=== PATIENT | female | born 1945 | race Caucasian/White ===

== ENCOUNTER → 2016-12-04 | Outpatient (CLI) | payer OTHER ==
[~2016-12-04] MED LIST: ADVAIR 250/501 EA INH; ASPI-COR81 M1 PO; CLINDAMYCIN HC300 MG PO; CLONIDINE0.1 MG PO; CLONIDINE0.1 MG/21 PO; COZAAR100 MG PO; HUMALOG MIX75/253 M1 SC; METFORMIN HCL1000 MG PO; NORVASC10 MG PO; PERCOCET 325 MG1 TA2 PO; PRAVACHOL40 MG PO; PREDNISONE50 MG PO; ULTRAM50 MG PO
== END | disposition home or self-care (01) ==
LOC: CARD 02:24
DX: R94.31 Abnormal electrocardiogram [ECG] [EKG] (principal)

== ENCOUNTER → 2017-12-08 | Outpatient (CLI) | payer OTHER | END | disposition home or self-care (01) | LOC: RAD 12:46 | DX: J45.909 Unspecified asthma, uncomplicated (principal); I10 Essential (primary) hypertension; E11.9 Type 2 diabetes mellitus without complications ==

== ENCOUNTER → 2018-03-16 | Outpatient (CLI) | payer OTHER | LOC: RAD 12:20 | DX: M47.896 Other spondylosis, lumbar region (principal) ==

== ENCOUNTER 2019-07-22 08:39 | Emergency (ER) | payer OTHER ==
[~2019-07-22] VITALS: Ht 170.1 cm; Wt 95.3 kg
[2019-07-22 08:41] VITALS: BP 152/53
[2019-07-22 09:29] LABS: BILIRUBIN NEGATIVE (NEGATIVE); BLOOD NEGATIVE (NEGATIVE); CLARITY CLEAR (CLEAR); COLOR YELLOW (YELLOW); GLUCOSE NEGATIVE (NEGATIVE); KETONE NEGATIVE (NEGATIVE); NITRITE NEGATIVE (NEGATIVE); SPECIFIC GRAVITY 1.015 (1.005-1.030); UROBILINOGEN 0.2 E.U./dl (0.2-1.0)
[2019-07-22 09:39] LABS: BACTERIA 2+; LEUKO ESTERASE NEGATIVE (NEGATIVE)
[2019-07-22 09:40] LABS: WBC 0-2 wbc/hpf (0-5)
[2019-07-22 10:34] LABS: BASO # 0.1 10*3/uL (0.0-0.1); BASO % 0.6 % (0.0-1.0); EOS # 0.4 10*3/uL (0.0-0.4); EOS % 4.7 % (1.0-4.0); HEMATOCRIT 35.9 % (37.0-47.0); LYMPH # 1.5 10*3/uL (1.3-4.4); MEAN CELL VOLUME 78.4 fl (81.0-99.0); MEAN CORPUSCULAR HGB CONC 30.6 g/dl (33.0-37.0); MEAN PLATELET VOLUME 9.3 fl (9.6-12.3); MONO # 0.4 10*3/uL (0.1-1.0); MONO % 4.8 % (3.0-9.0); NEUT # 5.8 10*3/uL (2.3-7.9); NEUT % 71.5 % (47.0-73.0); PLATELET COUNT AUTOMATED 341 10*3/uL (130-400); RED BLOOD COUNT 4.58 10*6/uL (4.10-5.10); RED CELL DISTRI WIDTH 16.5 % (0-14.5); WHITE BLOOD COUNT 8.1 10*3/uL (4.8-10.8)
[2019-07-22 10:58] LABS: BUN 26 mg/dl (7-24); CHLORIDE 106 mmol/L (98-107); CREATININE 1.07 mg/dL (0.55-1.02); POTASSIUM 4.4 mmol/L (3.5-5.1); SODIUM 142 mmol/L (136-145)
== END 2019-07-22 11:45 | disposition home or self-care (01) ==
LOC: ED 08:39
PROVIDERS: Emergency Medicine
DX: M54.5 Low back pain (principal); E11.9 Type 2 diabetes mellitus without complications; I10 Essential (primary) hypertension; J45.909 Unspecified asthma, uncomplicated; Z79.899 Other long term (current) drug therapy; Z90.710 Acquired absence of both cervix and uterus; Z90.49 Acquired absence of other specified parts of digestive tract

== ENCOUNTER 2019-09-04 09:10 | Inpatient (IN) | payer OTHER ==
[~2019-09-04] VITALS: Ht 170 cm; Wt 96.0 kg
[2019-09-04 09:13] VITALS: BP 170/76
[2019-09-04 09:34] VITALS: BP 142/58
--- NOTE | 2019-09-04 09:34 | NUR ---
PATIENT IS RECEIVING BREATHING TX AT THIS TIME.
[2019-09-04 09:47] LABS: BASO % 0.5 % (0.0-1.0); EOS # 0.3 10*3/uL (0.0-0.4); HEMATOCRIT 35.8 % (37.0-47.0); HEMOGLOBIN 11.2 g/dl (12.0-16.0); LYMPH # 1.2 10*3/uL (1.3-4.4); LYMPH % 18.6 % (27.0-41.0); MEAN CELL VOLUME 77.7 fl (81.0-99.0); MEAN CORPUSCULAR HGB 24.3 pg (27.0-31.0); MEAN CORPUSCULAR HGB CONC 31.3 g/dl (33.0-37.0); MEAN PLATELET VOLUME 9.1 fl (9.6-12.3); MONO # 0.4 10*3/uL (0.1-1.0); MONO % 6.4 % (3.0-9.0); NEUT # 4.4 10*3/uL (2.3-7.9); NEUT % 70.2 % (47.0-73.0); PLATELET COUNT AUTOMATED 328 10*3/uL (130-400); RED BLOOD COUNT 4.61 10*6/uL (4.10-5.10); RED CELL DISTRI WIDTH 16.8 % (0-14.5); WHITE BLOOD COUNT 6.3 10*3/uL (4.8-10.8)
[2019-09-04 10:00] LABS: ACT PARTIAL THROMBO TIME 24.2 SECONDS (20.0-32.1)
[2019-09-04 10:03] LABS: ALBUMIN 3.6 gm/dl (3.1-4.5); ALKALINE PHOSPHATASE 75 U/L (45-117); BUN 14 mg/dl (7-24); CHLORIDE 103 mmol/L (98-107); POTASSIUM 3.8 mmol/L (3.5-5.1); SGOT/AST 13 IU/L (3-35); SGPT/ALT 21 U/L (12-78); SODIUM 138 mmol/L (136-145); TOTAL PROTEIN 7.2 gm/dL (6.4-8.2)
--- NOTE | 2019-09-04 10:03 | NUR ---
PATIENT IS NOW ON ROOM AIR.
[2019-09-04 10:09] LABS: TROPONIN I < 0.015 ng/ml (<0.045)
--- NOTE | 2019-09-04 10:16 | NUR ---
WHILE ON ROOM AIR PATIENT WAS RESTING IN BED. SPO2 DROPPED TO 82-84% WITH GOOD WAVEFORM. PATIENT PLACED BACK ON 2 LITERS AND AFTER BEING ARROUSED AND TAKING DEEP BREATHS SPO2 IMPROVED TO 98%
[2019-09-04 11:15] VITALS: BP 126/50
[2019-09-04 12:20] VITALS: BP 99/51
--- NOTE | 2019-09-04 12:29 | NUR ---
A 73, admitted to , under the services of MIKE Chu MD with a diagnosis of HYPOXIA/COPD. Chief complaint is CHEST HEAVINESS, WHEEZING AND NONPRODUCTIVE COUGH. Patient arrived via stretcher from ER. Monitor applied. Initial assessment completed. Vital signs taken and recorded. MIKE CHU MD notified of admission to the unit. Orders received. See assessment for past medical history, medications and allergies. Patient and/or family oriented to unit. [facility] visitation policy reviewed. Clothing/patient valuable form completed. LALITHA CHAVEZ
[2019-09-04] MEDS ORDERED: PRAVASTATIN SOD20 MG PO (12:47)
[2019-09-04] MEDS ORDERED: VALSARTAN160 MG PO (12:47)
[2019-09-04] MEDS ORDERED: CLONIDINE0.2 MG PO (12:47)
[2019-09-04] MEDS ORDERED: MOBIC7.5 MG PO (12:48)
[2019-09-04] MEDS ORDERED: AMLODIPINE BESY10 MG PO (12:48)
[2019-09-04] MEDS ORDERED: NEURONTIN300 MG PO (12:48)
[2019-09-04] MEDS ORDERED: HYDR25T PO (12:49)
[2019-09-04] MEDS ORDERED: ASPIRIN81 M1 PO (12:49)
[2019-09-04] MEDS ORDERED: HUMALOG 751 UNIT/0.0 SC (12:50)
[2019-09-04 16:00] VITALS: BP 158/56
--- NOTE | 2019-09-04 18:10 | NUR ---
PATIENT RECEIVED BAD NEWS ON PHONE, SHE IS TEARFUL AND ANXIOUS, HR UP TO 140'S. PLACED ORDER FOR RUNNING TRAY FOR SUPPER FOR HER.
[2019-09-04 20:00] VITALS: BP 157/65
[2019-09-05] VITALS: BP 152/66
--- NOTE | 2019-09-05 02:27 | NUR ---
24 HOUR CHART CHECK COMPLETE
[2019-09-05 07:30] LABS: ALBUMIN 3.3 gm/dl (3.1-4.5); CREATININE 1.32 mg/dL (0.55-1.02); TOTAL PROTEIN 7.1 gm/dL (6.4-8.2)
[2019-09-05 08:00] VITALS: BP 132/58
[2019-09-05 08:22] LABS: BASO % 0.2 % (0.0-1.0); HEMATOCRIT 33.5 % (37.0-47.0); HEMOGLOBIN 10.3 g/dl (12.0-16.0); LYMPH # 0.6 10*3/uL (1.3-4.4); LYMPH % 10.2 % (27.0-41.0); MEAN CELL VOLUME 77.4 fl (81.0-99.0); MEAN CORPUSCULAR HGB 23.8 pg (27.0-31.0); MEAN CORPUSCULAR HGB CONC 30.7 g/dl (33.0-37.0); MEAN PLATELET VOLUME 9.8 fl (9.6-12.3); MONO # 0.1 10*3/uL (0.1-1.0); MONO % 1.8 % (3.0-9.0); NEUT # 5.5 10*3/uL (2.3-7.9); NEUT % 87.2 % (47.0-73.0); PLATELET COUNT AUTOMATED 327 10*3/uL (130-400); RED BLOOD COUNT 4.33 10*6/uL (4.10-5.10); RED CELL DISTRI WIDTH 16.8 % (0-14.5); WHITE BLOOD COUNT 6.3 10*3/uL (4.8-10.8)
--- NOTE | 2019-09-05 11:59 | NUR ---
PATIENT ACROSS ZHU TO [facility] TO VISIT HER BY WHEELCHAIR/O2 3L NC IN USE.
[2019-09-05 12:00] VITALS: BP 121/50
--- NOTE | 2019-09-05 12:16 | NUR ---
Auxiliary Power Equipment Operator in to talk to patient. Patient states lives at HOME with . There are 0 steps in the home. Physician: ESTEFANIA [facility]acy: [facility] Home health services: NONE Patient's level of ADLs: BEDFAST Patient has working utilities: YES DME: NONE Follow-up physician's appointment after d/c: PREFERS TO BE MADE BY HERSELF Does patient want to access PORTAL?: NO Discharge plan WAS DISCUSSED WITH THE PATIENT. PATIENT IS INDEPENDENT WITH ADLS/IADLS. PATIENT DRIVES. PATIENT DOES WORK. PATIENT STATED SHE HS NO NEEDS AT THIS TIME. HOWEVER, THE PATIENT IS CURRENTLY ON 3L OF OXYGEN. PATIENTS IS CURRENTLY IN THIS FACILITY WELL. PATIENT HAS NO HX OF HHC OR SNF. PATIENT PLANS ON RETURNING HOME AT DISCHARGE. CASE MANAGEMENT TO FOLLOW. NERY ANTONY
[2019-09-05 16:00] VITALS: BP 105/47
--- NOTE | 2019-09-05 19:30 | NUR ---
24 HOUR CHART CHECK COMPLETE
[2019-09-05 20:00] VITALS: BP 111/45
--- NOTE | 2019-09-05 20:10 | NUR ---
PATIENT ASSESSMENT COMPLETED WITHOUT INCIDENT AT THIS TIME. NC OXYGEN IN USE AT THIS TIME. PATIENT DENIES ANY NEED AT THIS TIME. CALL LIGHT WITHIN REACH WILL CONTINUE TO MONITOR.
[2019-09-06] VITALS: BP 113/56
[2019-09-06 08:00] VITALS: BP 110/46
[2019-09-06 09:14] LABS: HEMATOCRIT 31.7 % (37.0-47.0); HEMOGLOBIN 9.8 g/dl (12.0-16.0); MEAN CELL VOLUME 76.8 fl (81.0-99.0); MEAN CORPUSCULAR HGB 23.7 pg (27.0-31.0); MEAN CORPUSCULAR HGB CONC 30.9 g/dl (33.0-37.0); MEAN PLATELET VOLUME 9.7 fl (9.6-12.3); PLATELET COUNT AUTOMATED 342 10*3/uL (130-400); RED BLOOD COUNT 4.13 10*6/uL (4.10-5.10); RED CELL DISTRI WIDTH 17.2 % (0-14.5); WHITE BLOOD COUNT 15.7 10*3/uL (4.8-10.8)
[2019-09-06 09:34] LABS: ALBUMIN 3.3 gm/dl (3.1-4.5); CREATININE 1.78 mg/dL (0.55-1.02); TOTAL PROTEIN 6.7 gm/dL (6.4-8.2)
[2019-09-06 09:38] LABS: OVALOCYTES FEW; PLATELET SUFFICIENCY NORMAL (NORMAL); TOTAL CELLS COUNTED 100 #CELLS
[2019-09-06 09:39] LABS: TARGET CELLS FEW
[2019-09-06 12:00] VITALS: BP 96/42
[2019-09-06 12:43] VITALS: BP 100/50
--- NOTE | 2019-09-06 13:00 | NUR ---
Supervisor Special Education in to see patient. No new needs or request at this time. Discussed home health care services and she denies any home needs. Her is in [facility] 8. BC pending. IV antibiotics and IV steroids. When medically stable she will be discharged to home. She states she will drive herself home as her car is here at the hospital because she drove herself here.
[2019-09-06 16:00] VITALS: BP 100/40
[2019-09-06 20:00] VITALS: BP 111/48
[2019-09-06 21:00] LABS: BILIRUBIN NEGATIVE (NEGATIVE); BLOOD NEGATIVE (NEGATIVE); CLARITY SL CLOUDY (CLEAR); COLOR YELLOW (YELLOW); GLUCOSE NEGATIVE (NEGATIVE); KETONE NEGATIVE (NEGATIVE); LEUKO ESTERASE NEGATIVE (NEGATIVE); NITRITE NEGATIVE (NEGATIVE); PH 5.5 (5.0-9.0); SPECIFIC GRAVITY 1.025 (1.005-1.030); UROBILINOGEN 0.2 E.U./dl (0.2-1.0)
[2019-09-06 21:14] LABS: BACTERIA 1+
[2019-09-07] VITALS: BP 110/54
--- NOTE | 2019-09-07 00:44 | NUR ---
24 HR chart check completed.
[2019-09-07 07:35] LABS: HEMATOCRIT 31.1 % (37.0-47.0); HEMOGLOBIN 9.6 g/dl (12.0-16.0); MEAN CELL VOLUME 77.9 fl (81.0-99.0); MEAN CORPUSCULAR HGB 24.1 pg (27.0-31.0); MEAN CORPUSCULAR HGB CONC 30.9 g/dl (33.0-37.0); MEAN PLATELET VOLUME 10.2 fl (9.6-12.3); PLATELET COUNT AUTOMATED 333 10*3/uL (130-400); RED BLOOD COUNT 3.99 10*6/uL (4.10-5.10); RED CELL DISTRI WIDTH 17.6 % (0-14.5); WHITE BLOOD COUNT 15.1 10*3/uL (4.8-10.8)
[2019-09-07 07:53] LABS: ALBUMIN 3.1 gm/dl (3.1-4.5); CREATININE 1.98 mg/dL (0.55-1.02); PHOSPHOROUS 3.7 mg/dL (2.5-4.9); POTASSIUM 4.3 mmol/L (3.5-5.1)
[2019-09-07 08:00] VITALS: BP 112/48; BP 120/56
[2019-09-07 09:00] LABS: MICROCYTOSIS SLIGHT; OVALOCYTES FEW; PLATELET SUFFICIENCY NORMAL (NORMAL); POLYCHROMASIA SLIGHT; TARGET CELLS FEW; TOTAL CELLS COUNTED 100 #CELLS
--- NOTE | 2019-09-07 10:30 | NUR ---
Statistician Applied in to see patient. No new needs or request at this time. Discussed home health care services and she denies any home needs. When medically stable she will be discharged to home. Hypotension, cardiac medications changed.
[2019-09-07 12:00] VITALS: BP 115/59
[2019-09-07 16:00] VITALS: BP 127/47
[2019-09-07 20:00] VITALS: BP 133/43
[2019-09-08] VITALS: BP 116/43
--- NOTE | 2019-09-08 00:34 | NUR ---
24 HR chart check completed.
--- NOTE | 2019-09-08 06:20 | NUR ---
BEDSIDE GLUCOSE DONE 325 TEST REPEATED AND [address] LAY AND NOTIFIED HIM PER POLICY AND SAID TO GIVE 12UNITS.
[2019-09-08 07:07] LABS: ALBUMIN 3.2 gm/dl (3.1-4.5); CREATININE 1.8 mg/dL (0.55-1.02); PHOSPHOROUS 3.4 mg/dL (2.5-4.9)
[2019-09-08 07:18] LABS: HEMATOCRIT 31.9 % (37.0-47.0); HEMOGLOBIN 9.9 g/dl (12.0-16.0); MEAN CORPUSCULAR HGB 23.6 pg (27.0-31.0); MEAN PLATELET VOLUME 10.1 fl (9.6-12.3); PLATELET COUNT AUTOMATED 352 10*3/uL (130-400); RED CELL DISTRI WIDTH 17.4 % (0-14.5); WHITE BLOOD COUNT 12.6 10*3/uL (4.8-10.8)
[2019-09-08 07:45] VITALS: BP 130/54
--- NOTE | 2019-09-08 07:45 | NUR ---
ASSESSMENT COMPLETED AND DOCUMENTED. PT COOPERATIVE AND PLEASANT. DENIES ANY S/S OF DIZZINESS, HEADACHES OR PAIN. AMBULATORY. PT WENT INTO NEXT ROOM WITH TO VISIT. WANDER YIP
--- NOTE | 2019-09-08 08:15 | NUR ---
PT AWAKE, ALERT, & ORIENTED. LUNG SOUNDS ARE DIMINISHED WITH FAINT WHEEZE, SOUNDS IMPROVED SINCE YESTERDAY. ABD SOFT & NONTENDER. PT STATES THAT SHE FEELS A LOT BETTER. CALL LIGHT IS WITHIN REACH.
--- NOTE | 2019-09-08 09:00 | NUR ---
Racehorse Trainer in to see patient. No new needs or request at this time. Discussed home health care services and she denies any home needs. When medically stable she will be discharged to home.
--- NOTE | 2019-09-08 09:30 | NUR ---
PT IN HER ROOM LAYING IN BED WATCHING TV. DENIES ANY CHEST PAIN OR SOB AT THIS TIME. HARRIET SCHAEFFERCC
[2019-09-08 09:58] LABS: TOTAL CELLS COUNTED 100 #CELLS
[2019-09-08 09:59] LABS: PLATELET SUFFICIENCY NORMAL (NORMAL)
[2019-09-08 12:00] VITALS: BP 119/66
--- NOTE | 2019-09-08 12:00 | NUR ---
PT WAS SLEEPING UPON ENTERING ROOM WOKE EASILY. ASSESSMENT PERFORMED AND DOCUMENTED. PT DENIES ANY DYSPNEA OR CHEST PAINS. SHE HAS BEEN BETWEEN ROOMS VISITING WITH HER SPOUSE WITH NO COMPLAINTS OR CONCERNS. HARRIET YIP
--- NOTE | 2019-09-08 13:00 | NUR ---
Pt finished lunch. She ordered only a soup and drink states she is not hungry. Pt shows no signs or symptoms of distress. Denies dyspnea, chest pain, dizziness or cough. Pt keeps stating she wants to go home. Nena sanchez
[2019-09-08] MEDS ORDERED: PREDNISONE10 MG PO (14:48)
[2019-09-08] MEDS ORDERED: LEVAQUIN750 M1 PO (14:48)
--- NOTE | 2019-09-08 15:35 | NUR ---
Discharge instructions reviewed with patient/family. Patient receptive and verbalizes understanding. Follow-up care arranged. Written instructions given to patient/family. HEPLOCK DISCONTINUED. RADIO COMMUNICATIONS MECHANICIAN REMOVED. PATIENT DISCHARGED OFF FLOOR. HÉCTOR CHANDRA
== END 2019-09-08 16:09 | disposition home or self-care (01) | DRG 871 ==
LOC: ED 09:10 → 4E 11:13 → EDHOLD 11:13 → 4E 11:27
PROVIDERS: Emergency Medicine; Internal Medicine; Internal Medicine Nephrology; ADMIT Internal Medicine
DX: A41.9 Sepsis, unspecified organism (principal); N17.0 Acute kidney failure with tubular necrosis; J44.1 Chronic obstructive pulmonary disease with (acute) exacerbation; M54.5 Low back pain; G89.29 Other chronic pain; E11.9 Type 2 diabetes mellitus without complications; E78.5 Hyperlipidemia, unspecified; I10 Essential (primary) hypertension; Z79.899 Other long term (current) drug therapy; Z79.82 Long term (current) use of aspirin; R09.02 Hypoxemia

== ENCOUNTER → 2020-01-20 | Outpatient (CLI) | payer OTHER ==
[~2020-01-20] MED LIST changes: +AMLODIPINE BESY10 MG PO; +ASPIRIN81 M1 PO; +CLONIDINE0.2 MG PO; +HUMALOG 751 UNIT/0.0 SC; +HYDR25T PO; +LEVAQUIN750 M1 PO; +MOBIC7.5 MG PO; +NEURONTIN300 MG PO; +PRAVASTATIN SOD20 MG PO; +PREDNISONE10 MG PO; +VALSARTAN160 MG PO
[2020-01-20 16:20] LABS: BASO # 0.1 10*3/uL (0.0-0.1); BASO % 0.6 % (0.0-1.0); EOS # 0.4 10*3/uL (0.0-0.4); EOS % 4.7 % (1.0-4.0); HEMATOCRIT 36.2 % (37.0-47.0); LYMPH # 2.3 10*3/uL (1.3-4.4); LYMPH % 25.3 % (27.0-41.0); MEAN CELL VOLUME 70.7 fl (81.0-99.0); MEAN CORPUSCULAR HGB 21.3 pg (27.0-31.0); MEAN CORPUSCULAR HGB CONC 30.1 g/dl (33.0-37.0); MEAN PLATELET VOLUME 9.6 fl (9.6-12.3); MONO # 0.4 10*3/uL (0.1-1.0); MONO % 4.8 % (3.0-9.0); NEUT # 5.8 10*3/uL (2.3-7.9); NEUT % 64.4 % (47.0-73.0); PLATELET COUNT AUTOMATED 451 10*3/uL (130-400); RED BLOOD COUNT 5.12 10*6/uL (4.10-5.10); RED CELL DISTRI WIDTH 18.1 % (0-14.5); WHITE BLOOD COUNT 8.9 10*3/uL (4.8-10.8)
[2020-01-20 16:47] LABS: ALBUMIN 3.6 gm/dl (3.1-4.5); ALKALINE PHOSPHATASE 74 U/L (45-117); BUN 22 mg/dl (7-24); CHLORIDE 104 mmol/L (98-107); CREATININE 1.03 mg/dL (0.55-1.02); POTASSIUM 3.4 mmol/L (3.5-5.1); SGOT/AST 14 IU/L (3-35); SGPT/ALT 21 U/L (12-78); SODIUM 141 mmol/L (136-145); TOTAL PROTEIN 7.3 gm/dL (6.4-8.2)
== END | disposition home or self-care (01) ==
LOC: US 15:00 → LAB 15:26
PROVIDERS: Internal Medicine Nephrology
DX: M79.605 Pain in left leg (principal); N18.2 Chronic kidney disease, stage 2 (mild)

== ENCOUNTER → 2023-07-03 | Outpatient (CLI) | payer OTHER | END | disposition home or self-care (01) | LOC: CARD 06-16 10:30 | PROVIDERS: ATTEND Internal Medicine | DX: R94.31 Abnormal electrocardiogram [ECG] [EKG] (principal) ==

== ENCOUNTER 2024-10-23 09:20 | Emergency (ER) | payer OTHER ==
[~2024-10-23] VITALS: Ht 170.1 cm; Wt 66.7 kg
[~2024-10-23 09:20] MED LIST changes: +CEFUROXIME AXE500 MG PO; +JARDIANCE25 MG PO; +METFORMIN HYD1000 MG PO
[2024-10-23 09:32] VITALS: BP 124/60
[2024-10-23 09:50] LABS: BASO % 0.6 % (0.0-1.0); EOS % 0.6 % (1.0-4.0); HEMATOCRIT 37.7 % (37.0-47.0); MEAN CELL VOLUME 80.6 fl (81.0-99.0); MEAN CORPUSCULAR HGB 25.9 pg (27.0-31.0); MEAN CORPUSCULAR HGB CONC 32.1 g/dl (33.0-37.0); MEAN PLATELET VOLUME 8.7 fl (9.6-12.3); MONO # 0.4 10*3/uL (0.1-1.0); MONO % 11.9 % (3.0-9.0); NEUT # 2.7 10*3/uL (2.3-7.9); PLATELET COUNT AUTOMATED 297 10*3/uL (130-400); RED BLOOD COUNT 4.68 10*6/uL (4.10-5.10); RED CELL DISTRI WIDTH 16.3 % (0-14.5); WHITE BLOOD COUNT 3.6 10*3/uL (4.8-10.8)
[2024-10-23 10:01] LABS: ACT PARTIAL THROMBO TIME 28.5 SECONDS (20.0-32.1)
[2024-10-23 10:12] LABS: POTASSIUM 3.5 mmol/L (3.4-5.1); TOTAL PROTEIN 6.7 gm/dL (6.0-8.0)
[2024-10-23] MEDS ORDERED: Oseltamivir Phosphate 30 MG CAP PO ONE (10:50)
[2024-10-23] MEDS ORDERED: ACETAMINOPHEN 325 MG TAB PO ONE (10:55)
[2024-10-23] MEDS ORDERED: SODIUM CHLORIDE 0.9% 1,000 ML IV ONE (11:05)
[2024-10-23 12:32] LABS: BILIRUBIN Negative (Negative); BLOOD Negative (Negative); CLARITY Cloudy (Clear); COLOR Yellow (Yellow); GLUCOSE 3+ (Negative); KETONE 1+ (Negative); LEUKO ESTERASE 1+ (Negative); NITRITE Negative (Negative); PH 5.5 (4.5-8.0); SPECIFIC GRAVITY >= 1.030 (1.001-1.030)
[2024-10-23 12:53] LABS: BACTERIA 2+; EPITHELIAL CELLS 21-30; MUCOUS TRACE; WBC 51-100 wbc/hpf (0-5)
[2024-10-23] MEDS ORDERED: cefTRIAXone Sodium 1 GM/10 ML SYR IV ONE (13:45)
[2024-10-23] MEDS ORDERED: TAMIFLU30 MG PO (14:35)
[2024-10-23] MEDS ORDERED: AMOX-CLAV 875-1 EACH PO (14:35)
== END 2024-10-23 14:52 | disposition home or self-care (01) ==
LOC: ED 09:20
PROVIDERS: Internal Medicine
DX: J10.1 Influenza due to other identified influenza virus with other respiratory manifestations (principal); N39.0 Urinary tract infection, site not specified; Z20.822 Contact with and (suspected) exposure to COVID-19; R42 Dizziness and giddiness; R11.10 Vomiting, unspecified; E11.9 Type 2 diabetes mellitus without complications; R10.2 Pelvic and perineal pain; I10 Essential (primary) hypertension; J44.9 Chronic obstructive pulmonary disease, unspecified; Z90.710 Acquired absence of both cervix and uterus; Z90.49 Acquired absence of other specified parts of digestive tract

== ENCOUNTER 2024-11-22 11:27 | Emergency (ER) | payer OTHER ==
[~2024-11-22] VITALS: Ht 170.2 cm; Wt 66.2 kg
[~2024-11-22 11:27] MED LIST changes: +AMOX-CLAV 875-1 EACH PO; +TAMIFLU30 MG PO
[2024-11-22 11:44] VITALS: BP 154/65
== END 2024-11-22 12:18 | disposition home or self-care (01) ==
LOC: ED 11:27
DX: T16.1XXA Foreign body in right ear, initial encounter (principal); E11.9 Type 2 diabetes mellitus without complications; I10 Essential (primary) hypertension; E78.5 Hyperlipidemia, unspecified; J44.9 Chronic obstructive pulmonary disease, unspecified; Z79.899 Other long term (current) drug therapy; Z90.49 Acquired absence of other specified parts of digestive tract; Z90.710 Acquired absence of both cervix and uterus; W44.8XXA Other foreign body entering into or through a natural orifice, initial encounter; Y93.89 Activity, other specified; Y92.89 Other specified places as the place of occurrence of the external cause; Y99.8 Other external cause status